=== PATIENT | male | born 1965 | race Caucasian/White ===

== ENCOUNTER 2017-04-16 00:18 | Day surgery (SDC) | payer OTHER ==
[~2017-04-16 00:18] MED LIST: FENT1PAT9 TRANSDERM; OXYC10TA8 PO
[2017-04-16] MEDS ORDERED: 0.9% Sodium Chloride 1,000 ML IV SCH (06:00)
[2017-04-16] MEDS ORDERED: Sodium Chloride LOK Flush 10 mL Syringe IV PRN (06:00)
[2017-04-16] MEDS ORDERED: fentaNYL-PF 50 mCg/mL 2 mL Inj IVPUSH PRN (06:00)
== END 2017-04-16 23:59 | disposition home or self-care (01) ==
LOC: END 00:18
PROVIDERS: ATTEND Internal Medicine Gastroenterology
DX: C20 Malignant neoplasm of rectum (principal); Z53.8 Procedure and treatment not carried out for other reasons

== ENCOUNTER 2017-04-23 07:25 | Day surgery (SDC) | payer OTHER ==
[~2017-04-23] VITALS: Ht 193 cm; Wt 117.9 kg
[~2017-04-23 07:25] MED LIST changes: +0.9% Sodium Chloride 1,000 ML IV SCH; +Sodium Chloride LOK Flush 10 mL Syringe IV PRN; +fentaNYL-PF 50 mCg/mL 2 mL Inj IVPUSH PRN
[2017-04-23 07:34] VITALS: BP 157/81; PULSE 73; RESP 14; O2SAT 97
[2017-04-23] MEDS ORDERED: GABA600T2 PO ×2 (07:41)
[2017-04-23 09:21] VITALS: BP 147/88; PULSE 66; RESP 16; O2SAT 97
[2017-04-23 09:25] VITALS: BP 149/79; PULSE 70; RESP 14; O2SAT 97
--- NOTE | 2017-04-23 11:50 | ENDO ---
[address] [address] ENDOSCOPY PROCEDURE PATIENT: EUGENIA BRIZUELA : 1965 MR#: [id number] ADMIT: 04/23/2017 JOB ID: [id number] DATE: 04/23/2017 PROCEDURE: Colonoscopy. INDICATION: Patient with a history of rectal cancer. The patient's ASA classification is 2. Mallampati score is 2. MEDICATIONS: See nurse's notes for details regarding sedation INSTRUMENT USED: PCF H 190 DL. PREPARATION QUALITY: Was good. PROCEDURE DETAILS: After informed consent was obtained, the patient was brought into the GI suite, where he was placed on oxygen via nasal cannula and monitored with continuous pulse oximeter, telemetry and blood pressure monitoring. He has placed in a supine position. The patient had an ostomy. The appliance was then removed and a digital examination was performed of the ostomy which was unremarkable. The colonoscope was then inserted into the colostomy and advanced without difficulty to the cecum, which was identified by the presence of the ileocecal valve and appendiceal orifice. Once the cecum was reached, the colonoscope was withdrawn back to the ostomy as mucosa and lumen were examined. FINDINGS: 1. In the cecum there was an 8 mm flat polyp that was lifted using normal saline and then removed with a hot snare. The resulting mucosal defect was approximated with the placement of four hemoclips. 2. In the transverse colon, there was an approximately 5 mm sessile polyp that was removed with a hot snare. In the ascending colon, there were two polyps ranging in size from 4-5 mm which were both removed with a hot snare. IMPRESSION: 1. Cecal polyp. 2. Transverse colon polyp. 3. Two ascending colon polyps. RECOMMENDATIONS: 1. Avoid nonsteroidal anti-inflammatory drugs and anticoagulants for 72 hours. 2. Repeat colonoscopy in one year. COMPLICATIONS: None. ESTIMATED BLOOD LOSS: Less than 5 mL. MTDD
--- NOTE | 2017-04-28 16:59 | PATH ---
SURGICAL PATHOLOGY Attending Physician:Raji Villegas CASE STATUS: Signed Out PATIENT NAME: EUGENIA BRIZUELA PID: [id number] : 1965 DATE COLLECTED:04/23/2017 22:38 SPECIMEN: 1: Colon, Biopsy 2: Colon, Biopsy 3: Colon, Biopsy CLINICAL HISTORY: 1). CECAL POLYP X1 2). TRANSVERSE POLYP X1 3). ASCENDING POLYP X2 FINAL DIAGNOSIS: 1. Cecum, Polyps, Biopsy: Sessile serrated adenoma. 2. Transverse Colon, Polyp, Biopsy: Portions of tubular adenoma x2; negative for high-grade dysplasia. 3. Ascending Colon, Polyp, Biopsy: Portion of tubular adenoma x1; negative for high-grade dysplasia. Portion of sessile serrated adenoma x1. ICD10: K63.5 GROSS DESCRIPTION: Received are three formalin-filled containers, each labeled with the patient' s name. 1. Received in formalin, labeled with the patient' s name and "cecal", is one fragment of hope, soft tissue measuring 1.0 x 0.5 x 0.5 cm. The fragment is divided and totally submitted in cassette 1A. 2. Received in formalin, labeled with the patient' s name and "transverse", are two fragments of hope, soft tissue ranging in size from less than 0.1 cm by less than 0.1 cm by less than 0.1 cm to 0.1 x 0.1 x 0.1 cm. All fragments are totally submitted in cassette 2A. 3. Received in formalin, labeled with the patient' s name and "ascend polyp", are two fragments of hope, soft tissue ranging in size from 0.1 x 0.1 x 0.1 cm to 0.2 x 0.2 x 0.1 cm. All fragments are totally submitted in cassette 3A. ([id number]) ICD-9 CODES: CPT CODES: 1: 14746 2: 20189 3: 96239 Electronically Signed Out Inessa Tidwell MD [facility] [address], [place] [address] Technical component performed at [facility], [address], [place], [address]
== END 2017-04-23 23:59 | disposition home or self-care (01) ==
LOC: END 07:25
PROVIDERS: ATTEND Internal Medicine Gastroenterology
DX: Z08 Encounter for follow-up examination after completed treatment for malignant neoplasm (principal); Z85.048 Personal history of other malignant neoplasm of rectum, rectosigmoid junction, and anus; D12.0 Benign neoplasm of cecum; D12.3 Benign neoplasm of transverse colon; D12.2 Benign neoplasm of ascending colon; Z92.21 Personal history of antineoplastic chemotherapy; Z92.3 Personal history of irradiation; Z93.3 Colostomy status; G47.30 Sleep apnea, unspecified; K21.9 Gastro-esophageal reflux disease without esophagitis; E66.9 Obesity, unspecified; Z68.30 Body mass index [BMI] 30.0-30.9, adult
CPT/HCPCS: 44394; 44404; 99153; G0500; J7030